=== PATIENT | male | born 2005 | race Caucasian/White ===

== ENCOUNTER 2025-01-20 12:38 | Outpatient (CLI) | payer OTHER | END 2025-01-20 12:39 | disposition home or self-care (01) | LOC: CSHWCC 12:38 | PROVIDERS: ATTEND Nurse Practitioner Family | DX: L97.812 Non-pressure chronic ulcer of other part of right lower leg with fat layer exposed (principal) | CPT/HCPCS: 11042; 99214; G0463 ==

== ENCOUNTER 2025-01-27 13:29 | Outpatient (CLI) | payer OTHER | END 2025-01-27 13:30 | disposition home or self-care (01) | LOC: CSHWCC 13:29 | PROVIDERS: ATTEND Nurse Practitioner Family | DX: L97.812 Non-pressure chronic ulcer of other part of right lower leg with fat layer exposed (principal) | CPT/HCPCS: 11042 ==